=== PATIENT | female | born 1995 | race Two or more races ===

== ENCOUNTER 2023-03-06 05:47 | Day surgery (SDC) | payer OTHER | END 2023-03-06 09:40 | disposition home or self-care (01) | LOC: AMB-ENDOS 05:47 → CIR.AMB 14:30 | PROVIDERS: ATTEND Surgery | DX: K29.60 Other gastritis without bleeding (principal); R10.13 Epigastric pain; E66.09 Other obesity due to excess calories; K44.9 Diaphragmatic hernia without obstruction or gangrene ==